=== PATIENT | male | born 1995 | race Caucasian/White ===

== ENCOUNTER 2017-08-12 07:58 | Emergency (ER) | payer MEDICAID, OTHER ==
[2017-08-12] MEDS: PROPOFOL 200 MG INJ IV (08:30)
[2017-08-12] MEDS: ONDANSETRON 4 MG INJ IV (13:16)
[2017-08-12] MEDS: HYDROmorphONE 1 MG/5 ML IV SYRINGE IV (13:16)
[2017-08-12] MEDS: LIDOCAINE 1%/EPI 30 ML INJ INJ (14:06)
== END 2017-08-12 17:59 | disposition short-term general hospital (02) ==
LOC: E/R 07:58
DX: S02.19XA Other fracture of base of skull, initial encounter for closed fracture (principal); S52.352A Displaced comminuted fracture of shaft of radius, left arm, initial encounter for closed fracture; S09.90XA Unspecified injury of head, initial encounter; F13.10 Sedative, hypnotic or anxiolytic abuse, uncomplicated; F17.210 Nicotine dependence, cigarettes, uncomplicated; V00.131A Fall from skateboard, initial encounter; Y92.9 Unspecified place or not applicable
CPT/HCPCS: 12014; 70450; 70480; 72125; 73110-LT; 94770; 96374; 96375; 99285-25

== ENCOUNTER 2017-08-24 20:13 | Emergency (ER) | payer MEDICAID | END 2017-08-24 21:22 | disposition left against medical advice (07) | LOC: FTE 20:13 | DX: M79.89 Other specified soft tissue disorders (principal); F17.210 Nicotine dependence, cigarettes, uncomplicated; Z48.01 Encounter for change or removal of surgical wound dressing | CPT/HCPCS: 99282; Z7502 ==

== ENCOUNTER 2017-09-17 21:43 | Emergency (ER) | payer OTHER, MEDICAID | END 2017-09-17 23:15 | disposition home or self-care (01) | LOC: FTE 21:43 | DX: S69.92XD Unspecified injury of left wrist, hand and finger(s), subsequent encounter (principal); F17.210 Nicotine dependence, cigarettes, uncomplicated; X58.XXXD Exposure to other specified factors, subsequent encounter | CPT/HCPCS: 29125; 99282-25 ==